=== PATIENT | male | born 1995 | race Caucasian/White ===

== ENCOUNTER 2021-07-26 20:22 | Emergency (ER) | payer MEDICARE, BC ==
[~2021-07-26 20:22] MED LIST: CYCLOBENZAPRINE5 MG PO; NAPROSYN500 MG PO
[2021-07-26 21:05] LABS: HEMOGLOBIN 15.3 gm/dl (14.0-17.5); RED BLOOD COUNT 5.04 M/UL (4.20-5.50); WHITE BLOOD COUNT 15.8 K/UL (4.5-11.0)
[2021-07-26 21:31] LABS: BUN/CREATININE RATIO 15 (0-10)
== END 2021-07-27 00:35 | disposition home or self-care (01) ==
LOC: ER1 20:22
PROVIDERS: Nurse Practitioner
DX: L05.01 Pilonidal cyst with abscess (principal); I10 Essential (primary) hypertension; F17.210 Nicotine dependence, cigarettes, uncomplicated; K21.9 Gastro-esophageal reflux disease without esophagitis; Z79.899 Other long term (current) drug therapy
CPT/HCPCS: 10080; 80048; 80307; 85025; 99283

== ENCOUNTER 2021-07-30 10:40 | Emergency (ER) | payer BC | END 2021-07-30 13:20 | disposition home or self-care (01) | LOC: ER1 10:40 | DX: Z48.817 Encounter for surgical aftercare following surgery on the skin and subcutaneous tissue (principal); I10 Essential (primary) hypertension | CPT/HCPCS: 99282 ==